=== PATIENT | female | born 1965 | race Caucasian/White ===

== ENCOUNTER → 2021-07-19 16:07 | Outpatient (CLI) | payer OTHER, SELFPAY ==
[2021-07-19 16:51] LABS: COVID19 -Nasal RAPID POSITIVE (Negative)
== END ==
PROVIDERS: PCP Physician Assistant; Visit Provider Family Medicine Sleep Medicine
DX: Z20.822 Contact with and (suspected) exposure to COVID-19 (principal)
CPT/HCPCS: 87635; C9803

== ENCOUNTER → 2021-07-21 13:46 | Outpatient (CLI) | payer OTHER, SELFPAY ==
--- NOTE | 2021-07-21 | DI.ECHO.S_ITS ---
[facility] +---------+ : : [address] : : : : [phone] : : : : Phone: [phone]+ Echocardiogram Report + + :Name: ABIGAIL RUCKER Study Date: 07/21/2021 Height: 65 in : :[facility] : Weight: 175 lb : : Gender: Female BSA: 1.9 m2 : :: 1965 Age: 56 yrs BP: 143/94 mmHg: :Reason For Study: Chest pain : :Ordering Physician: Edgar : :Kayden Acuña Performed By: Sincere Brownlee : :Referring: EDGAR ACUÑA : + + Interpretation Summary The left ventricle is normal in size and wall thickness. The ejection fraction is estimated to be 55-60%. The right ventricle is normal in size and function. There is moderate mitral regurgitation. The IVC is of normal diameter and collapses greater than 50% with a sniff. This suggests a low right atrial pressure of 3 mm Hg. Procedure: A two-dimensional transthoracic echocardiogram with color flow and Doppler was performed. The study quality was technically adequate. There is no prior echocardiogram noted for this patient. The patient was in normal sinus rhythm during the exam. Left Ventricle: The left ventricle is normal in size and wall thickness. There is no thrombus. Left ventricular systolic function is normal. The ejection fraction is estimated to be 55-60%. There are no focal wall motion abnormalities. Diastolic parameters suggest a relaxation abnormality of the left ventricle, consistent with probable normal filling pressures. Right Ventricle: The right ventricle is normal in size and function. Atria: Both atria are normal in size. The interatrial septum grossly appears intact with no obvious evidence for an atrial septal defect. Mitral Valve: There is a flat closure plane of the the mitral valve leaflets. The mitral valve leaflets appear mildly thickened, but open well. No obvious mitral valve prolapse seen. There is moderate mitral regurgitation. The mitral regurgitant jet is eccentrically directed. Aortic Valve: The aortic valve is normal in structure and function. The aortic valve is trileaflet. There is no aortic valve stenosis. No aortic regurgitation is present. Tricuspid Valve: The tricuspid valve is normal in structure and function. Pulmonary artery pressures cannot be estimated because of the lack of a measurable TR jet velocity. There is trace tricuspid regurgitation. Pulmonic Valve: The pulmonic valve is normal in structure and function. There is trace pulmonic regurgitation. Great Vessels: The aortic root is normal size. The dimensions of the ascending aorta are normal. The IVC is of normal diameter and collapses greater than 50% with a sniff. This suggests a low right atrial pressure of 3 mm Hg. Pericardium/ Pleura There is no pericardial effusion. There is no pleural effusion. MMode/2D Measurements & Calculations LVIDd: 4.3 cm LVOT diam: 2.2 cm LVIDs: 2.9 cm Ao root diam: 2.7 cm FS: 32.0 % asc Aorta Diam: 2.9 cm IVSd: 0.80 cm LVPWd: 0.80 cm LV beaulieu. diameter/BSA (cm/m^2): 2.3 LV sys. diameter/BSA (cm/m^2): 1.5 LA A2 area: 18.0 cm2 RA long axis: 4.8 cm LA A4 area: 17.9 cm2 RA area: 13.0 cm2 LA length (vol): 5.5 cm RA vol: 29.8 ml LA vol: 50.3 ml RA : 15.9 ml/m2 LA vol index: 26.9 ml/m2 TAPSE: 2.3 cm Doppler Measurements & Calculations Ao V2 max: 107.7 cm/sec LVOT Max Matthew: 72.1 cm/sec Ao V2 mean: 73.3 cm/sec LV V1 max P.1 mmHg Ao max P.6 mmHg LV V1 VTI: 13.2 cm Ao mean P.4 mmHg BECKY(I,D): 2.8 cm2 Ao V2 VTI: 17.0 cm BECKY(V,D): 2.4 cm2 sev ratio: 0.78 BECKY indexed to BSA (cm^2/m^2): 1.5 MV E max matthew: 70.2 cm/sec SV(LVOT): 48.4 ml MV A max matthew: 91.9 cm/sec MV E/A: 0.76 Med Peak E' Matthew: 6.6 cm/sec E/E' med: 10.7 Lat Peak E' Matthew: 9.6 cm/sec E/E' lat: 7.3 E/e' average: 9.0 MV dec time: 0.32 sec Reading Physician:06:40 PM
--- NOTE | 2021-07-21 16:01 | PM.TREADMILL ---
Cardiac Stress Test Report Referral & Results Date Patient Seen: 07/21/21 Time Patient Seen: 16:02 Requesting provider: Lloyd Boone Indication: chest pain Rest ECG: sinus rhythm Procedure Note: Standard [facility]ano protocol, 7:02, 10.1 mets Fair exercise capacity, ZULAY -4% Normal hemodynamic response to exercise No chest pain or anginal symptoms No significant ST changes at peak exercise No ectopy Impression: Normal exercise stress test Please note: Actual ECG tracings can be found in the PACS system.
--- NOTE | 2021-07-21 18:40 | DI.NM.S_ITS ---
DATE OF SERVICE: 07/21/2021 PROCEDURE PERFORMED: Exercise treadmill stress test without imaging. ORDERING PROVIDER: Dr. Lloyd Boone. INDICATIONS: The patient is a 56-year-old female with a history of breast cancer with hypertension, hyperlipidemia, and atypical chest pain. FINDINGS: 1. The patient was able to exercise for 7 minutes, 2 seconds on a standard Laureano protocol suggesting average exercise capacity with an ZULAY of -4%, achieving 10.1 METs. 2. She had a normal heart rate and blood pressure response to exercise, achieving a maximum heart rate of 168 BPM (104% of her predicted maximum). 3. She had no chest discomfort or other anginal symptoms with stress. 4. Her resting ECG shows normal sinus rhythm with normal ST segments. There are no significant ST-segment shifts or arrhythmias with stress. IMPRESSION: 1. Normal exercise treadmill stress test for ischemia. 2. Average exercise capacity without chest discomfort or arrhythmias. Crista Sharma - BEATRIS/aníbal/mandy doc#: [id number]/job#: [id number] dd: 07/21/2021 17:03:00 dt: 07/21/2021 17:41:00 DICTATING MD/COPIES TO: Merlin Darby MD; Lloyd Boone MD COPIES MNE: SAMEERA;
== END ==
PROVIDERS: PCP Physician Assistant; Referring Provider Internal Medicine Cardiovascular Disease; Visit Provider Internal Medicine Cardiovascular Disease
DX: I34.0 Nonrheumatic mitral (valve) insufficiency (principal); R07.89 Other chest pain; I10 Essential (primary) hypertension; E78.5 Hyperlipidemia, unspecified; Z85.3 Personal history of malignant neoplasm of breast
CPT/HCPCS: 93017; 93306

== ENCOUNTER → 2021-12-29 16:14 | Outpatient (CLI) | payer OTHER, SELFPAY | PROVIDERS: PCP Physician Assistant; Visit Provider Obstetrics & Gynecology | DX: N89.8 Other specified noninflammatory disorders of vagina (principal) | CPT/HCPCS: 87070; 87077; 87186; 87205 ==